=== PATIENT | male | born 1960 | race Hispanic/Latino ===

== ENCOUNTER 2017-07-17 19:30 | Inpatient (IN) | payer BC ==
[2017-07-17] MEDS ORDERED: ASPIRIN PO ONE (20:04)
[2017-07-17 20:24] LABS: Hemoglobin 6.5 gm/dl (11.8-15.2); Mean Corpuscular HGB Conc 34 % (32-34); Mean Corpuscular Hemoglobin 30 pg (28-32); Mean Corpuscular Volume 88 fl (84-94); Platelet Count 325 K/mm3 (140-440); Red Blood Count 2.21 M/mm3 (3.65-5.03); Red Cell Distribution Width 14.5 % (13.2-15.2)
[2017-07-17 20:30] LABS: BUN/Creatinine Ratio 24; Blood Urea Nitrogen 34 mg/dL (9-20); Calcium 8.2 mg/dL (8.4-10.2); Hemolysis Index 21
[2017-07-17 20:42] LABS: Hematocrit 19.4 % (35.5-45.6)
[2017-07-17] MEDS ORDERED: NACL 0.9% 500 ML 500 ML IV ONE (20:44)
[2017-07-17] MEDS ORDERED: PROTONIX 80 MG in NACL 0.9% 100 ML IV SCH (21:00)
--- NOTE | 2017-07-17 21:26 | Emergency Department Report ---
HPI - General Chief Complaint: Dizziness Time Seen by Provider: 07/17/17 20:42 - HPI HPI: 56-year-old male presents to ED with 1 week history of dizziness, shortness of breath, weakness, high blood pressure and black stool. Patient states symptoms got worse yesterday after drinking some coffee felt severe palpitation, went to the fire department and his blood pressure was found to be 200 over 100s. Patient states that he has been compliant with his blood pressure medicine he takes losartan 100 mg daily, hydrochlorothiazide 25 mg daily. He felt similar symptoms today as far as the palpitation did not get better at home, he also had elevated blood pressure so he presents to the ED for further evaluation. 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 ED Past Medical Hx - Past Medical History Hx Hypertension: Yes - Surgical History Past Surgical History?: No - Social History Smoking Status: Never Smoker Substance Use Type: None ED Review of Systems ROS: Stated complaint: DIZZINESS; ELEVATED BP Other details as noted in HPI Comment: All other systems reviewed and negative Gastrointestinal: nausea Neurological: weakness, other (dizziness) Physical Exam - Physical Exam Vital Signs: Vital Signs 07/17/17 07/17/17 19:45 21:18 Temperature 98 F 98.2 F Pulse Rate 98 H Respiratory 16 Rate Blood Pressure 125/57 O2 Sat by Pulse 98 Oximetry Physical Exam: - Physical Exam Physical Exam: - General Limitations: No Limitations General appearance: alert, in no apparent distress, mildly obese - Head Head exam: Present: atraumatic, normocephalic - Eye Eye exam: Present: normal appearance - ENT ENT exam: Present: mucous membranes moist - Neck Neck exam: Present: normal inspection - Respiratory Respiratory exam: Present: normal lung sounds bilaterally. Absent: respiratory distress - Cardiovascular Cardiovascular Exam: Present: normal rhythm, tachycardia. Absent: systolic murmur, diastolic murmur, rubs, gallop - GI/Abdominal GI/Abdominal exam: Present: soft, normal bowel sounds - Extremities Exam Extremities exam: Present: normal inspection - Back Exam Back exam: Present: normal inspection - Neurological Exam Neurological exam: Present: alert, oriented X3 - Psychiatric Psychiatric exam: normal affect and mood - Skin Skin exam: Present: warm, dry, intact, normal color. Absent: rash ED Course Vital Signs 07/17/17 07/17/17 19:45 21:18 Temperature 98 F 98.2 F Pulse Rate 98 H Respiratory 16 Rate Blood Pressure 125/57 O2 Sat by Pulse 98 Oximetry - Reevaluation(s) Reevaluation #1: 07/17/17 21:27 Patient advised about labs findings of severe anemia, he gives verbal consent for blood transfusion. Spoke with GI Dr. Lynn Donahue, he advised to keep patient nothing by mouth after midnight. ED Medical Decision Making - Lab Data Result diagrams: 07/17/17 20:08 07/17/17 20:08 Critical Care Time: Yes (30) Critical care time in (mins) excluding proc time.: 30 Critical care attestation.: If time is entered above; I have spent that time in minutes in the direct care of this critically ill patient, excluding procedure time. Critical Care Time: 2. RBCs ordered for severe anemia. ED Disposition Clinical Impression: UGI bleed Disposition: -09 OP ADMIT IP TO THIS HOSP Is pt being admited?: Yes Does the pt Need Aspirin: No Condition: Stable Referrals: ANNEMARIE SULLIVAN MD [Primary Care Provider] - 3-5 Days
[2017-07-17 22:08] LABS: Basophils % (Manual) 0 % (0.0-1.8); Total Cells Counted 100
[2017-07-17 22:16] LABS: Anisocytosis 1+; Platelet Estimate Consistent w Auto
[2017-07-17] MEDS ORDERED: SODIUM CHLORIDE FLUSH SYRINGE 10 ML IV PRN (23:05)
[2017-07-17] MEDS ORDERED: TYLENOL PO PRN (23:05)
[2017-07-17] MEDS ORDERED: ZOFRAN IV PRN (23:05)
[2017-07-17] MEDS ORDERED: NACL 0.45% 1000 ML 1,000 ML IV SCH (23:45)
[2017-07-18] MEDS ORDERED: NACL 0.45% 1000 ML 1,000 ML IV ONE (00:52)
--- NOTE | 2017-07-18 01:34 | History and Physical Report ---
History of Present Illness Date of examination: 07/17/17 Date of admission: 07/17/17 21:17 Chief complaint: Dizziness History of present illness: Patient is a 56 year old male who presented with 2 days history of dizziness. He has associated syncopal episodes, shortness of breath with mild exertion and passage of dark stool of 2 weeks' duration. No chest pain, palpitation, headaches, fever or chills Past History Past Medical History: hypertension, other (hiatal hernia per EGD done about 6 years ago) Past Surgical History: No surgical history Social history: other (denies tobacco, alcohol or illicit drug use) Family history: other (reviewed and noncontributory) Medications and Allergies Allergies Allergy/AdvReac Type Severity Reaction Status Date / Time No Known Allergies Allergy Verified 07/17/17 19:44 Active Meds: Active Medications Acetaminophen (Tylenol) 650 mg PO Q4H PRN PRN Reason: Pain MILD(1-3)/Fever >100.5/BOSE Docusate Sodium (Colace) 100 mg PO BID KALIA Pantoprazole Sodium 80 mg/ (Sodium Chloride) 100 mls @ 10 mls/hr IV DIRECT KALIA Sodium Chloride (Nacl 0.45% 1000 Ml) 1,000 mls @ 100 mls/hr IV DIRECT KALIA Ondansetron HCl (Zofran) 4 mg IV Q8H PRN PRN Reason: Nausea And Vomiting Sodium Chloride (Sodium Chloride Flush Syringe 10 Ml) 10 ml IV PRN PRN PRN Reason: LINE FLUSH Sodium Chloride (Sodium Chloride Flush Syringe 10 Ml) 10 ml IV BID KALIA Review of Systems All systems: negative (Except as documented in the HPI, all other systems were reviewed and negative) Exam - Constitutional Vitals: Temp Pulse Resp BP Pulse Ox 98.2 F 65 19 127/69 99 07/17/17 23:08 07/17/17 23:08 07/17/17 23:08 07/18/17 00:20 07/18/17 00:00 General appearance: Present: no acute distress, well-nourished - EENT Eyes: Present: PERRL, EOM intact ENT: hearing intact, clear oral mucosa - Neck Neck: Present: supple, normal ROM - Respiratory Respiratory effort: normal Respiratory: bilateral: CTA - Cardiovascular Heart Sounds: Present: S1 & S2. Absent: rub, click - Extremities Extremities: pulses symmetrical, No edema Peripheral Pulses: within normal limits - Abdominal General gastrointestinal: Present: soft, non-tender, non-distended, normal bowel sounds Male genitourinary: Present: normal - Integumentary Integumentary: Present: clear, warm, dry - Musculoskeletal Musculoskeletal: gait normal, strength equal bilaterally - Psychiatric Psychiatric: appropriate mood/affect, intact judgment & insight - Neurologic Neurologic: CNII-XII intact, moves all extremities Results - Labs CBC & Chem 7: 07/17/17 20:08 07/17/17 20:08 Labs: Laboratory Last Values WBC 9.2 K/mm3 (4.5-11.0) 07/17/17 20:08 RBC 2.21 M/mm3 (3.65-5.03) L 07/17/17 20:08 Hgb 6.5 gm/dl (11.8-15.2) L 07/17/17 20:08 Hct 19.4 % (35.5-45.6) L* 07/17/17 20:08 MCV 88 fl (84-94) 07/17/17 20:08 MCH 30 pg (28-32) 07/17/17 20:08 MCHC 34 % (32-34) 07/17/17 20:08 RDW 14.5 % (13.2-15.2) 07/17/17 20:08 Plt Count 325 K/mm3 (140-440) 07/17/17 20:08 Add Manual Diff Complete 07/17/17 20:08 Total Counted 100 07/17/17 20:08 Seg Neuts % (Manual) 54.0 % (40.0-70.0) 07/17/17 20:08 Band Neutrophils % 0 % 07/17/17 20:08 Lymphocytes % (Manual) 36.0 % (13.4-35.0) H 07/17/17 20:08 Reactive Lymphs % (Man) 0 % 07/17/17 20:08 Monocytes % (Manual) 8.0 % (0.0-7.3) H 07/17/17 20:08 Eosinophils % (Manual) 2.0 % (0.0-4.3) 07/17/17 20:08 Basophils % (Manual) 0 % (0.0-1.8) 07/17/17 20:08 Metamyelocytes % 0 % 07/17/17 20:08 Myelocytes % 0 % 07/17/17 20:08 Promyelocytes % 0 % 07/17/17 20:08 Blast Cells % 0 % 07/17/17 20:08 Nucleated RBC % Not Reportable 07/17/17 20:08 Seg Neutrophils # Man 5.0 K/mm3 (1.8-7.7) 07/17/17 20:08 Band Neutrophils # 0.0 K/mm3 07/17/17 20:08 Lymphocytes # (Manual) 3.3 K/mm3 (1.2-5.4) 07/17/17 20:08 Abs React Lymphs (Man) 0.0 K/mm3 07/17/17 20:08 Monocytes # (Manual) 0.7 K/mm3 (0.0-0.8) 07/17/17 20:08 Eosinophils # (Manual) 0.2 K/mm3 (0.0-0.4) 07/17/17 20:08 Basophils # (Manual) 0.0 K/mm3 (0.0-0.1) 07/17/17 20:08 Metamyelocytes # 0.0 K/mm3 07/17/17 20:08 Myelocytes # 0.0 K/mm3 07/17/17 20:08 Promyelocytes # 0.0 K/mm3 07/17/17 20:08 Blast Cells # 0.0 K/mm3 07/17/17 20:08 WBC Morphology Not Reportable 07/17/17 20:08 Hypersegmented Neuts Not Reportable 07/17/17 20:08 Hyposegmented Neuts Not Reportable 07/17/17 20:08 Hypogranular Neuts Not Reportable 07/17/17 20:08 Smudge Cells Not Reportable 07/17/17 20:08 Toxic Granulation Not Reportable 07/17/17 20:08 Toxic Vacuolation Not Reportable 07/17/17 20:08 Dohle Bodies Not Reportable 07/17/17 20:08 Pelger-Huet Anomaly Not Reportable 07/17/17 20:08 Leidy Rods Not Reportable 07/17/17 20:08 Platelet Estimate Consistent w auto 07/17/17 20:08 Clumped Platelets Not Reportable 07/17/17 20:08 Plt Clumps, EDTA Not Reportable 07/17/17 20:08 Large Platelets Not Reportable 07/17/17 20:08 Giant Platelets Not Reportable 07/17/17 20:08 Platelet Satelliting Not Reportable 07/17/17 20:08 Plt Morphology Comment Not Reportable 07/17/17 20:08 RBC Morphology Not Reportable 07/17/17 20:08 Dimorphic RBCs Not Reportable 07/17/17 20:08 Polychromasia Not Reportable 07/17/17 20:08 Hypochromasia Not Reportable 07/17/17 20:08 Poikilocytosis Not Reportable 07/17/17 20:08 Anisocytosis 1+ 07/17/17 20:08 Microcytosis Not Reportable 07/17/17 20:08 Macrocytosis Not Reportable 07/17/17 20:08 Spherocytes Not Reportable 07/17/17 20:08 Pappenheimer Bodies Not Reportable 07/17/17 20:08 Sickle Cells Not Reportable 07/17/17 20:08 Target Cells Not Reportable 07/17/17 20:08 Tear Drop Cells Not Reportable 07/17/17 20:08 Ovalocytes Not Reportable 07/17/17 20:08 Helmet Cells Not Reportable 07/17/17 20:08 Guy-[place] Bodies Not Reportable 07/17/17 20:08 [place] Rings Not Reportable 07/17/17 20:08 Della Cells Not Reportable 07/17/17 20:08 Bite Cells Not Reportable 07/17/17 20:08 Crenated Cell Not Reportable 07/17/17 20:08 Elliptocytes Not Reportable 07/17/17 20:08 Acanthocytes (Spur) Not Reportable 07/17/17 20:08 Rouleaux Not Reportable 07/17/17 20:08 Hemoglobin C Crystals Not Reportable 07/17/17 20:08 Schistocytes Not Reportable 07/17/17 20:08 Malaria parasites Not Reportable 07/17/17 20:08 Chris Bodies Not Reportable 07/17/17 20:08 Hem Pathologist Commnt No 07/17/17 20:08 Sodium 143 mmol/L (137-145) 07/17/17 20:08 Potassium 4.3 mmol/L (3.6-5.0) 07/17/17 20:08 Chloride 108.4 mmol/L (98-107) H 07/17/17 20:08 Carbon Dioxide 23 mmol/L (22-30) 07/17/17 20:08 Anion Gap 16 mmol/L 07/17/17 20:08 BUN 34 mg/dL (9-20) H 07/17/17 20:08 Creatinine 1.4 mg/dL (0.8-1.5) 07/17/17 20:08 Estimated GFR 53 ml/min 07/17/17 20:08 BUN/Creatinine Ratio 24 % 07/17/17 20:08 Glucose 114 mg/dL (75-100) H 07/17/17 20:08 Calcium 8.2 mg/dL (8.4-10.2) L 07/17/17 20:08 Troponin T < 0.010 ng/mL (0.00-0.029) 07/17/17 20:08 Blood Type B POSITIVE 07/17/17 20:51 Antibody Screen Negative 07/17/17 20:51 Crossmatch See Detail 07/17/17 20:51 Assessment and Plan Assessment and plan: GI bleed -Patient will be transfused with 2 units of packed red blood cell, Will monitor posttransfusion H&H -Will continue Protonix drip, started in the ED -He is scheduled for EGD in a.m. by the floor layer tile Hypertension, stable Prophylaxis -DVT prophylaxis with SCD and GI prophylaxis with Protonix 35 minutes spent in coordinating care
[2017-07-18 04:32] LABS: Hematocrit 21.8 % (35.5-45.6); Hemoglobin 7.3 gm/dl (11.8-15.2); Mean Corpuscular HGB Conc 34 % (32-34); Mean Corpuscular Hemoglobin 30 pg (28-32); Mean Corpuscular Volume 88 fl (84-94); Platelet Count 235 K/mm3 (140-440); Red Blood Count 2.47 M/mm3 (3.65-5.03); Red Cell Distribution Width 14.6 % (13.2-15.2)
[2017-07-18 04:42] LABS: INR 1.03 (0.87-1.13)
[2017-07-18 04:43] LABS: Partial Thromboplastin Time 28.9 Sec. (24.2-36.6)
[2017-07-18 04:48] LABS: Alanine Aminotransferase 16 units/L (7-56); Albumin 3.1 g/dL (3.9-5); BUN/Creatinine Ratio 25; Blood Urea Nitrogen 30 mg/dL (9-20); Calcium 7.9 mg/dL (8.4-10.2); Hemolysis Index 1
[2017-07-18 06:12] LABS: Total Cells Counted 100
[2017-07-18 06:13] LABS: Band Neutrophils # (Manual) 0.2 K/mm3; Basophils % (Manual) 0 % (0.0-1.8)
[2017-07-18 06:14] LABS: Anisocytosis 1+; Ovalocytes Rare; Platelet Estimate Appe
--- NOTE | 2017-07-18 09:50 | Gastroenterology Consultation ---
History of Present Illness - Reason for Consult Consult date: 07/18/17 UGIB Requesting physician: ECHO PATINO - History of Present Illness Patient is a 56 y/o male with PMH of HTN who presented to ED with c/o dizziness , SOB, weakness, and black stool x 1 week. He was found to be anemic on admission with HGB 6.5 and 2 units of PRBCs were transfused. This morning pt was resting in bed w/o acute distress and family at bedside. He states he is feeling better after receiving blood transfusions with SOB and dizziness now resolved. Last BM was yesterday with black stool. No active sign of bleeding this am. No hematemesis or hematochezia. Denies fever, wt loss, CP, abd pain, N/ V, dysphagia, odynophagia, diarrhea, or constipation. Takes daily ASA. No hx of liver disease or PUD. No previous EGD. States he had a scan done several years ago that revealed a hiatal hernia. No Fhx of GI cancers Past History Past Medical History: hypertension, other (hiatal hernia ) Past Surgical History: No surgical history Social history: other (denies tobacco, alcohol or illicit drug use) Family history: other (reviewed and noncontributory) Medications and Allergies Allergies Allergy/AdvReac Type Severity Reaction Status Date / Time No Known Allergies Allergy Verified 07/17/17 19:44 Home Medications Medication Instructions Recorded Confirmed Last Taken Type No Known Home Medications [No 07/18/17 07/18/17 Unknown History Reported Home Medications] Active Meds: Active Medications Acetaminophen (Tylenol) 650 mg PO Q4H PRN PRN Reason: Pain MILD(1-3)/Fever >100.5/BOSE Docusate Sodium (Colace) 100 mg PO BID KALIA Pantoprazole Sodium 80 mg/ (Sodium Chloride) 100 mls @ 10 mls/hr IV DIRECT KALIA Sodium Chloride (Nacl 0.45% 1000 Ml) 1,000 mls @ 100 mls/hr IV DIRECT KALIA Ondansetron HCl (Zofran) 4 mg IV Q8H PRN PRN Reason: Nausea And Vomiting Sodium Chloride (Sodium Chloride Flush Syringe 10 Ml) 10 ml IV PRN PRN PRN Reason: LINE FLUSH Sodium Chloride (Sodium Chloride Flush Syringe 10 Ml) 10 ml IV BID [facility] Review of Systems - Review of Systems All systems: negative Gastrointestinal: melena Exam - Constitutional Vital Signs: Temp Pulse Resp BP Pulse Ox 97.7 F 75 18 120/63 97 07/18/17 08:17 07/18/17 08:17 07/18/17 08:17 07/18/17 08:17 07/18/17 08:17 General appearance: no acute distress, obese - EENT Eyes: PERRL, EOM intact ENT: hearing intact - Respiratory Respiratory: bilateral: CTA - Cardiovascular Rhythm: regular Heart Sounds: Present: S1 & S2 - Gastrointestinal General gastrointestinal: Present: soft, non-tender, non-distended, normal bowel sounds - Integumentary Integumentary: Present: warm, dry - Neurologic Neurological: alert and oriented x3 - Labs CBC & Chem 7: 07/18/17 03:55 07/18/17 03:55 Lab Results: Laboratory Results - last 24 hr 07/17/17 07/17/17 07/17/17 20:08 20:08 20:51 WBC 9.2 RBC 2.21 L Hgb 6.5 L Hct 19.4 L* MCV 88 MCH 30 MCHC 34 RDW 14.5 Plt Count 325 Add Manual Diff Complete Total Counted 100 Seg Neuts % (Manual) 54.0 Band Neutrophils % 0 Lymphocytes % (Manual) 36.0 H Reactive Lymphs % (Man) 0 Monocytes % (Manual) 8.0 H Eosinophils % (Manual) 2.0 Basophils % (Manual) 0 Metamyelocytes % 0 Myelocytes % 0 Promyelocytes % 0 Blast Cells % 0 Nucleated RBC % Not Reportable Seg Neutrophils # Man 5.0 Band Neutrophils # 0.0 Lymphocytes # (Manual) 3.3 Abs React Lymphs (Man) 0.0 Monocytes # (Manual) 0.7 Eosinophils # (Manual) 0.2 Basophils # (Manual) 0.0 Metamyelocytes # 0.0 Myelocytes # 0.0 Promyelocytes # 0.0 Blast Cells # 0.0 WBC Morphology Not Reportable Hypersegmented Neuts Not Reportable Hyposegmented Neuts Not Reportable Hypogranular Neuts Not Reportable Smudge Cells Not Reportable Toxic Granulation Not Reportable Toxic Vacuolation Not Reportable Dohle Bodies Not Reportable Pelger-Huet Anomaly Not Reportable Leidy Rods Not Reportable Platelet Estimate Consistent w auto Clumped Platelets Not Reportable Plt Clumps, EDTA Not Reportable Large Platelets Not Reportable Giant Platelets Not Reportable Platelet Satelliting Not Reportable Plt Morphology Comment Not Reportable RBC Morphology Not Reportable Dimorphic RBCs Not Reportable Polychromasia Not Reportable Hypochromasia Not Reportable Poikilocytosis Not Reportable Anisocytosis 1+ Microcytosis Not Reportable Macrocytosis Not Reportable Spherocytes Not Reportable Pappenheimer Bodies Not Reportable Sickle Cells Not Reportable Target Cells Not Reportable Tear Drop Cells Not Reportable Ovalocytes Not Reportable Helmet Cells Not Reportable [place] Bodies Not Reportable [place] Rings Not Reportable [place] Cells Not Reportable Bite Cells Not Reportable Crenated Cell Not Reportable Elliptocytes Not Reportable Acanthocytes (Spur) Not Reportable Rouleaux Not Reportable Hemoglobin C Crystals Not Reportable Schistocytes Not Reportable Malaria parasites Not Reportable Chris Bodies Not Reportable Hem Pathologist Commnt No PT INR APTT Sodium 143 Potassium 4.3 Chloride 108.4 H Carbon Dioxide 23 Anion Gap 16 BUN 34 H Creatinine 1.4 Estimated GFR 53 BUN/Creatinine Ratio 24 Glucose 114 H Calcium 8.2 L Total Bilirubin AST ALT Alkaline Phosphatase Troponin T < 0.010 Total Protein Albumin Albumin/Globulin Ratio Blood Type B POSITIVE Antibody Screen Negative Crossmatch See Detail 07/18/17 07/18/17 07/18/17 03:55 03:55 03:55 WBC 8.3 RBC 2.47 L Hgb 7.3 L Hct 21.8 L MCV 88 MCH 30 MCHC 34 RDW 14.6 Plt Count 235 Add Manual Diff Complete Total Counted 100 Seg Neuts % (Manual) 60.0 Band Neutrophils % 2.0 Lymphocytes % (Manual) 29.0 Reactive Lymphs % (Man) 0 Monocytes % (Manual) 6.0 Eosinophils % (Manual) 3.0 Basophils % (Manual) 0 Metamyelocytes % 0 Myelocytes % 0 Promyelocytes % 0 Blast Cells % 0 Nucleated RBC % Not Reportable Seg Neutrophils # Man 5.0 Band Neutrophils # 0.2 Lymphocytes # (Manual) 2.4 Abs React Lymphs (Man) 0.0 Monocytes # (Manual) 0.5 Eosinophils # (Manual) 0.2 Basophils # (Manual) 0.0 Metamyelocytes # 0.0 Myelocytes # 0.0 Promyelocytes # 0.0 Blast Cells # 0.0 WBC Morphology Not Reportable Hypersegmented Neuts Not Reportable Hyposegmented Neuts Not Reportable Hypogranular Neuts Not Reportable Smudge Cells Not Reportable Toxic Granulation Not Reportable Toxic Vacuolation Not Reportable Dohle Bodies Not Reportable Pelger-Huet Anomaly Not Reportable Leidy Rods Not Reportable Platelet Estimate Appe Clumped Platelets Not Reportable Plt Clumps, EDTA Not Reportable Large Platelets Not Reportable Giant Platelets Not Reportable Platelet Satelliting Not Reportable Plt Morphology Comment Not Reportable RBC Morphology Not Reportable Dimorphic RBCs Not Reportable Polychromasia Not Reportable Hypochromasia Not Reportable Poikilocytosis Not Reportable Anisocytosis 1+ Microcytosis Not Reportable Macrocytosis Not Reportable Spherocytes Not Reportable Pappenheimer Bodies Not Reportable Sickle Cells Not Reportable Target Cells Not Reportable Tear Drop Cells Not Reportable Ovalocytes Rare Helmet Cells Not Reportable [place] Bodies Not Reportable [place] Rings Not Reportable Della Cells Not Reportable Bite Cells Not Reportable Crenated Cell Not Reportable Elliptocytes Not Reportable Acanthocytes (Spur) Not Reportable Rouleaux Not Reportable Hemoglobin C Crystals Not Reportable Schistocytes Not Reportable Malaria parasites Not Reportable Chris Bodies Not Reportable Hem Pathologist Commnt No PT INR APTT Sodium 142 Potassium 3.8 Chloride 107.4 H Carbon Dioxide 26 Anion Gap 12 BUN 30 H Creatinine 1.2 Estimated GFR > 60 BUN/Creatinine Ratio 25 Glucose 155 H Calcium 7.9 L Total Bilirubin < 0.20 AST 15 ALT 16 Alkaline Phosphatase 59 Troponin T < 0.010 Total Protein 5.3 L Albumin 3.1 L Albumin/Globulin Ratio 1.4 Blood Type Antibody Screen Crossmatch 07/18/17 03:55 WBC RBC Hgb Hct MCV MCH MCHC RDW Plt Count Add Manual Diff Total Counted Seg Neuts % (Manual) Band Neutrophils % Lymphocytes % (Manual) Reactive Lymphs % (Man) Monocytes % (Manual) Eosinophils % (Manual) Basophils % (Manual) Metamyelocytes % Myelocytes % Promyelocytes % Blast Cells % Nucleated RBC % Seg Neutrophils # Man Band Neutrophils # Lymphocytes # (Manual) Abs React Lymphs (Man) Monocytes # (Manual) Eosinophils # (Manual) Basophils # (Manual) Metamyelocytes # Myelocytes # Promyelocytes # Blast Cells # WBC Morphology Hypersegmented Neuts Hyposegmented Neuts Hypogranular Neuts Smudge Cells Toxic Granulation Toxic Vacuolation Dohle Bodies Pelger-Huet Anomaly Leidy Rods Platelet Estimate Clumped Platelets Plt Clumps, EDTA Large Platelets Giant Platelets Platelet Satelliting Plt Morphology Comment RBC Morphology Dimorphic RBCs Polychromasia Hypochromasia Poikilocytosis Anisocytosis Microcytosis Macrocytosis Spherocytes Pappenheimer Bodies Sickle Cells Target Cells Tear Drop Cells Ovalocytes Helmet Cells Guy-[place] Bodies [place] Rings Della Cells Bite Cells Crenated Cell Elliptocytes Acanthocytes (Spur) Rouleaux Hemoglobin C Crystals Schistocytes Malaria parasites Chris Bodies Hem Pathologist Commnt PT 14.0 INR 1.03 APTT 28.9 Sodium Potassium Chloride Carbon Dioxide Anion Gap BUN Creatinine Estimated GFR BUN/Creatinine Ratio Glucose Calcium Total Bilirubin AST ALT Alkaline Phosphatase Troponin T Total Protein Albumin Albumin/Globulin Ratio Blood Type Antibody Screen Crossmatch Assessment and Plan 1.GI bleed 2.melena -HGB 7.3-s/p transfusion of 2 units PRBCs -continue to monitor H/H and transfuse as needed -BM with black stool yesterday but no active signs of bleeding this am -currently HD stable -hold blood thinning medications -etiology- possible ulcer vs other GI pathology -will schedule for an EGD today -Neep NPO -continue PPI and supportive care -will follow
--- NOTE | 2017-07-18 10:17 | Progress Note ---
Assessment and Plan Assessment and plan: 56-year-old man who presented with melena 2 weeks and dizziness Acute blood loss anemia Has been transfused seems of packed red blood cells with appropriate rise in hemoglobin, physes keep the hemoglobin above 7 GI bleed GI input appreciated for EGD today Hypertension, stable Prophylaxis -DVT prophylaxis with SCD and GI prophylaxis with Protonix History Interval history: Review of systems Constitutional: No fevers, no malaise, no joint pains CVS: No chest pain, no orthopnea, no dyspnea on exertion, no pedal edema GI: No abdominal pain, no diarrhea, no vomiting, no constipation Respiratory: No shortness of breath, no wheezing, no coughing Hospitalist Physical - Physical exam Narrative exam: General.: Appears well, no distress, nontoxic HEENT: Moist mucous membranes, extraocular muscles intact, no lymphadenopathy Neck: supple Cardiac: S1-S2 heard Lungs: clear to auscultation bilaterally Abdomen: soft , nontender, nondistended, bowel sounds positive Extremities: no edema clubbing or cyanosis Skin: no rash or lesions Neurologic: no gross focal deficits Psych: appropriate behavior, appropriate mood, corporative, judgment intact - Constitutional Vitals: Temp Pulse Resp BP Pulse Ox 97.7 F 75 18 120/63 97 07/18/17 08:17 07/18/17 08:17 07/18/17 08:17 07/18/17 08:17 07/18/17 08:17 General appearance: Present: no acute distress, well-nourished Results - Labs CBC & Chem 7: 07/18/17 03:55 07/18/17 03:55 Labs: Laboratory Last Values WBC 8.3 K/mm3 (4.5-11.0) 07/18/17 03:55 RBC 2.47 M/mm3 (3.65-5.03) L 07/18/17 03:55 Hgb 7.3 gm/dl (11.8-15.2) L 07/18/17 03:55 Hct 21.8 % (35.5-45.6) L 07/18/17 03:55 MCV 88 fl (84-94) 07/18/17 03:55 MCH 30 pg (28-32) 07/18/17 03:55 MCHC 34 % (32-34) 07/18/17 03:55 RDW 14.6 % (13.2-15.2) 07/18/17 03:55 Plt Count 235 K/mm3 (140-440) 07/18/17 03:55 Add Manual Diff Complete 07/18/17 03:55 Total Counted 100 07/18/17 03:55 Seg Neuts % (Manual) 60.0 % (40.0-70.0) 07/18/17 03:55 Band Neutrophils % 2.0 % 07/18/17 03:55 Lymphocytes % (Manual) 29.0 % (13.4-35.0) 07/18/17 03:55 Reactive Lymphs % (Man) 0 % 07/18/17 03:55 Monocytes % (Manual) 6.0 % (0.0-7.3) 07/18/17 03:55 Eosinophils % (Manual) 3.0 % (0.0-4.3) 07/18/17 03:55 Basophils % (Manual) 0 % (0.0-1.8) 07/18/17 03:55 Metamyelocytes % 0 % 07/18/17 03:55 Myelocytes % 0 % 07/18/17 03:55 Promyelocytes % 0 % 07/18/17 03:55 Blast Cells % 0 % 07/18/17 03:55 Nucleated RBC % Not Reportable 07/18/17 03:55 Seg Neutrophils # Man 5.0 K/mm3 (1.8-7.7) 07/18/17 03:55 Band Neutrophils # 0.2 K/mm3 07/18/17 03:55 Lymphocytes # (Manual) 2.4 K/mm3 (1.2-5.4) 07/18/17 03:55 Abs React Lymphs (Man) 0.0 K/mm3 07/18/17 03:55 Monocytes # (Manual) 0.5 K/mm3 (0.0-0.8) 07/18/17 03:55 Eosinophils # (Manual) 0.2 K/mm3 (0.0-0.4) 07/18/17 03:55 Basophils # (Manual) 0.0 K/mm3 (0.0-0.1) 07/18/17 03:55 Metamyelocytes # 0.0 K/mm3 07/18/17 03:55 Myelocytes # 0.0 K/mm3 07/18/17 03:55 Promyelocytes # 0.0 K/mm3 07/18/17 03:55 Blast Cells # 0.0 K/mm3 07/18/17 03:55 WBC Morphology Not Reportable 07/18/17 03:55 Hypersegmented Neuts Not Reportable 07/18/17 03:55 Hyposegmented Neuts Not Reportable 07/18/17 03:55 Hypogranular Neuts Not Reportable 07/18/17 03:55 Smudge Cells Not Reportable 07/18/17 03:55 Toxic Granulation Not Reportable 07/18/17 03:55 Toxic Vacuolation Not Reportable 07/18/17 03:55 Dohle Bodies Not Reportable 07/18/17 03:55 Pelger-Huet Anomaly Not Reportable 07/18/17 03:55 Leidy Rods Not Reportable 07/18/17 03:55 Platelet Estimate Appe 07/18/17 03:55 Clumped Platelets Not Reportable 07/18/17 03:55 Plt Clumps, EDTA Not Reportable 07/18/17 03:55 Large Platelets Not Reportable 07/18/17 03:55 Giant Platelets Not Reportable 07/18/17 03:55 Platelet Satelliting Not Reportable 07/18/17 03:55 Plt Morphology Comment Not Reportable 07/18/17 03:55 RBC Morphology Not Reportable 07/18/17 03:55 Dimorphic RBCs Not Reportable 07/18/17 03:55 Polychromasia Not Reportable 07/18/17 03:55 Hypochromasia Not Reportable 07/18/17 03:55 Poikilocytosis Not Reportable 07/18/17 03:55 Anisocytosis 1+ 07/18/17 03:55 Microcytosis Not Reportable 07/18/17 03:55 Macrocytosis Not Reportable 07/18/17 03:55 Spherocytes Not Reportable 07/18/17 03:55 Pappenheimer Bodies Not Reportable 07/18/17 03:55 Sickle Cells Not Reportable 07/18/17 03:55 Target Cells Not Reportable 07/18/17 03:55 Tear Drop Cells Not Reportable 07/18/17 03:55 Ovalocytes Rare 07/18/17 03:55 Helmet Cells Not Reportable 07/18/17 03:55 [place] Bodies Not Reportable 07/18/17 03:55 [place] Rings Not Reportable 07/18/17 03:55 [place] Cells Not Reportable 07/18/17 03:55 Bite Cells Not Reportable 07/18/17 03:55 Crenated Cell Not Reportable 07/18/17 03:55 Elliptocytes Not Reportable 07/18/17 03:55 Acanthocytes (Spur) Not Reportable 07/18/17 03:55 Rouleaux Not Reportable 07/18/17 03:55 Hemoglobin C Crystals Not Reportable 07/18/17 03:55 Schistocytes Not Reportable 07/18/17 03:55 Malaria parasites Not Reportable 07/18/17 03:55 Chris Bodies Not Reportable 07/18/17 03:55 Hem Pathologist Commnt No 07/18/17 03:55 PT 14.0 Sec. (12.2-14.9) 07/18/17 03:55 INR 1.03 (0.87-1.13) 07/18/17 03:55 APTT 28.9 Sec. (24.2-36.6) 07/18/17 03:55 Sodium 142 mmol/L (137-145) 07/18/17 03:55 Potassium 3.8 mmol/L (3.6-5.0) 07/18/17 03:55 Chloride 107.4 mmol/L (98-107) H 07/18/17 03:55 Carbon Dioxide 26 mmol/L (22-30) 07/18/17 03:55 Anion Gap 12 mmol/L 07/18/17 03:55 BUN 30 mg/dL (9-20) H 07/18/17 03:55 Creatinine 1.2 mg/dL (0.8-1.5) 07/18/17 03:55 Estimated GFR > 60 ml/min 07/18/17 03:55 BUN/Creatinine Ratio 25 % 07/18/17 03:55 Glucose 155 mg/dL (75-100) H 07/18/17 03:55 Calcium 7.9 mg/dL (8.4-10.2) L 07/18/17 03:55 Total Bilirubin < 0.20 mg/dL (0.1-1.2) 07/18/17 03:55 AST 15 units/L (5-40) 07/18/17 03:55 ALT 16 units/L (7-56) 07/18/17 03:55 Alkaline Phosphatase 59 units/L (35-129) 07/18/17 03:55 Troponin T < 0.010 ng/mL (0.00-0.029) 07/18/17 03:55 Total Protein 5.3 g/dL (6.3-8.2) L 07/18/17 03:55 Albumin 3.1 g/dL (3.9-5) L 07/18/17 03:55 Albumin/Globulin Ratio 1.4 % 07/18/17 03:55 Blood Type B POSITIVE 07/17/17 20:51 Antibody Screen Negative 07/17/17 20:51 Crossmatch See Detail 07/17/17 20:51
[2017-07-18] MEDS ORDERED: WATER FOR IRRIG STERILE IR ONE (11:36)
[2017-07-18] MEDS ORDERED: NACL 0.9% 1000 ML 1,000 ML IV SCH (13:00)
[2017-07-18] MEDS ORDERED: DIPRIVAN 10 MG/ML IV ONE (14:32)
--- NOTE | 2017-07-18 14:45 | Anesthesia Consultation ---
Anesthesia Consult and Med Hx Date of service: 07/18/17 - Airway Anesthetic Teeth Evaluation: Good ROM Head & Neck: Adequate Mental/Hyoid Distance: Adequate Mallampati Class: Class III Intubation Access Assessment: Probably Good - Pulmonary Exam CTA: Yes - Pre-Operative Health Status ASA Pre-Surgery Classification: ASA1, ASA3 Proposed Anesthetic Plan: TIVA - Pulmonary Hx Smoking: No Hx Asthma: No Hx Respiratory Symptoms: No COPD: No Home Oxygen Therapy: No Hx Pneumonia: No Hx Sleep Apnea: No - Cardiovascular System Hx Hypertension: Yes Hx Heart Attack/AMI: No Hx Angina: No Hx Percutaneous Transluminal Coronary Angioplasty (PTCA): No Hx Cardia Arrhythmia: No Hx Pacemaker: No Hx Internal Defibrillator: No Hx Valvular Heart Disease: No Hx Heart Murmur: No Hx Peripheral Vascular Disease: No - Central Nervous System Hx Seizures: No CVA: No Hx Back Pain: No Hx Psychiatric Problems: No - Gastrointestinal Hx Ulcer: No Hx Gastroesophageal Reflux Disease: No - Endocrine Hx Renal Disease: No Hx End Stage Renal Disease: No Hx Cirrhosis: No Hx Liver Disease: No Hx Insulin Dependent Diabetes: No Hx Non-Insulin Dependent Diabetes: No Hx Thyroid Disease: No Hx Hypothyroidism: No Hx Hyperthyroidism: No - Hematic Hx Anemia: No Hx Sickle Cell Disease: No - Other Systems Hx Alcohol Use: No Hx Substance Use: No Hx Cancer: No Hx Obesity: No
--- NOTE | 2017-07-18 14:59 | Operative Report ---
Operative Report Operative Report: Esophagogastroduodenoscopy Procedure Note with Biopsies Date of procedure: 07/18/2017 Endoscopist: Aashish Donahue Pre-op diagnosis: UGI bleed, anemia Post-op diagnosis: Erosive esophagitis, salmon colored mucosa in lower third of esophagus, hiatal hernia, erosive gastritis, duodenitis Anesthesia: MAC Complications: No immediate complications Estimated blood loss: minimal Procedure: After consent was obtained, the patient was placed in the left lateral decubitus position. The fujinon endoscope was inserted into the patient 's mouth under direct vision, and advanced to the 2nd portion of duodenum without difficulty. The patient tolerated the procedure well. The views of the mucosa were good. Patient's vital signs were monitored continuously throughout the procedure. Findings: There were two clean based ulcerations in the lower third of the esophagus. [place] colored mucosa in the mid-lower third of the esophagus, suspicious for lopez's esophagus. Biopsies were obtained. There was a moderate-sized hiatal hernia. Small clean based erosions in the antrum of the stomach with erythematous mucosa. Otherwise the stomach appeared normal. Biopsies were obtained to evaluate for H pylori. Erythematous mucosa in the duodenal bulb. There was nodular appearing mucosa in the proximal portion of duodenal bulb (gastric heterotopia appearance). Biopsies were obtained. Bile seen in the 2nd portion of the duodenum. Biopsies were obtained to rule out celiac disease. Impression: 1. Erosive esophagitis 2. [place] colored mucosa in lower esophagus. Biopsied. 3. Erosive gastritis. Biopsied 4. Duodenitis/nodular duodenal bulb mucosa. Biopsied. Multiple potential source for patient's dark stools, however no high risk bleeding lesions seen. Recommendations: -follow-up pathology -PPI BID dosing -check iron studies, start replacement therapy as needed -will need colonoscopy which can be done as outpatient if no further bleeding signs and H/H is stable -repeat endoscopy in 2-3 months after PPI therapy to re-assess esophagitis/ abnormal mucosal changes above -okay to start clears and advance as tolerated
[2017-07-18] MEDS: COLACE PO SCH ×2 (17:23→21:37)
[2017-07-18] MEDS: SODIUM CHLORIDE FLUSH SYRINGE 10 ML IV SCH ×2 (17:23→21:41)
[2017-07-19 07:07] LABS: Hematocrit 22.2 % (35.5-45.6); Hemoglobin 7.7 gm/dl (11.8-15.2); Mean Corpuscular HGB Conc 35 % (32-34); Mean Corpuscular Hemoglobin 30 pg (28-32); Mean Corpuscular Volume 87 fl (84-94); Platelet Count 222 K/mm3 (140-440); Red Blood Count 2.56 M/mm3 (3.65-5.03); Red Cell Distribution Width 14.6 % (13.2-15.2)
[2017-07-19 07:18] LABS: Calcium 7.9 mg/dL (8.4-10.2)
[2017-07-19 09:31] LABS: Anisocytosis 1+; Basophils % (Manual) 0 % (0.0-1.8); Platelet Estimate Consistent w Auto; Total Cells Counted 100
[2017-07-19] MEDS ORDERED: PROTONIX IV SCH (11:00)
[2017-07-19] MEDS: COLACE PO SCH (13:11)
--- NOTE | 2017-07-19 15:01 | Gastroenterology Progress Note ---
Assessment and Plan - Patient Problems (1) Acute blood loss anemia Current Visit: Yes Status: Acute Plan to address problem: - EGD 07/18 with HH/gastritis/esophagitis and likely Barretts. - Dark stools have resolved and patient asymptomatic. - Is due for a colonoscopy, and we will arrange this as an outpatient within the next 2 weeks in the clinic. - OK to d/c home on PO protonix, MVI daily, and ASA 81 mg (instructed patient and to hold this until Fri07/23/2017). - We will have the patient f/u in our clinic for labs next week. - Instructed them to avoid all NSAIDs other than his cardiac aspirin. Subjective Date of service: 07/19/17 Principal diagnosis: Anemia Interval history: The patient feels well with no N/V/abdominal pain. He had a BM this morning, and it has gone back to brown. He is tolerating a regular diet. Objective - Constitutional Vitals: Temp Pulse Resp BP Pulse Ox 97.7 F 81 20 127/56 97 07/19/17 11:50 07/19/17 11:50 07/19/17 11:50 07/19/17 11:50 07/19/17 11:50 General appearance: no acute distress - Respiratory Respiratory effort: normal Respiratory: bilateral: CTA - Cardiovascular Rhythm: regular Heart Sounds: Present: S1 & S2 - Gastrointestinal General gastrointestinal: Present: soft, non-tender, non-distended - Labs CBC & Chem 7: 07/19/17 05:16 07/19/17 05:16 Labs: Laboratory Results - last 24 hr 07/19/17 07/19/17 05:16 05:16 WBC 6.1 RBC 2.56 L Hgb 7.7 L Hct 22.2 L MCV 87 MCH 30 MCHC 35 H RDW 14.6 Plt Count 222 Add Manual Diff Complete Total Counted 100 Seg Neuts % (Manual) 59.0 Band Neutrophils % 0 Lymphocytes % (Manual) 33.0 Reactive Lymphs % (Man) 3.0 Monocytes % (Manual) 3.0 Eosinophils % (Manual) 2.0 Basophils % (Manual) 0 Metamyelocytes % 0 Myelocytes % 0 Promyelocytes % 0 Blast Cells % 0 Nucleated RBC % Not Reportable Seg Neutrophils # Man 3.6 Band Neutrophils # 0.0 Lymphocytes # (Manual) 2.0 Abs React Lymphs (Man) 0.2 Monocytes # (Manual) 0.2 Eosinophils # (Manual) 0.1 Basophils # (Manual) 0.0 Metamyelocytes # 0.0 Myelocytes # 0.0 Promyelocytes # 0.0 Blast Cells # 0.0 WBC Morphology Not Reportable Hypersegmented Neuts Not Reportable Hyposegmented Neuts Not Reportable Hypogranular Neuts Not Reportable Smudge Cells Not Reportable Toxic Granulation Not Reportable Toxic Vacuolation Not Reportable Dohle Bodies Not Reportable Pelger-Huet Anomaly Not Reportable Leidy Rods Not Reportable Platelet Estimate Consistent w auto Clumped Platelets Not Reportable Plt Clumps, EDTA Not Reportable Large Platelets Not Reportable Giant Platelets Not Reportable Platelet Satelliting Not Reportable Plt Morphology Comment Not Reportable RBC Morphology Not Reportable Dimorphic RBCs Not Reportable Polychromasia Not Reportable Hypochromasia Not Reportable Poikilocytosis Not Reportable Anisocytosis 1+ Microcytosis Not Reportable Macrocytosis Not Reportable Spherocytes Not Reportable Pappenheimer Bodies Not Reportable Sickle Cells Not Reportable Target Cells Not Reportable Tear Drop Cells Not Reportable Ovalocytes Not Reportable Helmet Cells Not Reportable [place] Bodies Not Reportable [place] Rings Not Reportable Della Cells Not Reportable Bite Cells Not Reportable Crenated Cell Not Reportable Elliptocytes Not Reportable Acanthocytes (Spur) Not Reportable Rouleaux Not Reportable Hemoglobin C Crystals Not Reportable Schistocytes Not Reportable Malaria parasites Not Reportable Chris Bodies Not Reportable Hem Pathologist Commnt No Sodium 142 Potassium 4.3 Chloride 105.7 Carbon Dioxide 25 Anion Gap 16 BUN 20 Creatinine 1.3 Estimated GFR 57 BUN/Creatinine Ratio 15 Glucose 131 H Calcium 7.9 L
[2017-07-19] MEDS: SODIUM CHLORIDE FLUSH SYRINGE 10 ML IV SCH (15:05)
--- NOTE | 2017-07-19 15:48 | Discharge Summary ---
Providers - Providers Date of Admission: 07/17/17 21:17 Attending physician: SAJAN CAIN MD 07/17/17 20:56 Consult to Physician [CONS] Stat Comment: Dr. Alva (er dr) spoke with Dr. Lu Donahue Consulting Provider: BETO DONAHUE Physician Instructions: UGIB Reason For Exam: ugib Primary care physician: ANNEMARIE SULLIVAN Hospitalization Condition: Stable Hospital course: 56-year-old man who presented with melena 2 weeks and dizziness. The patient received blood transfusion. 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 The patient's is planned for outpatient colonoscopy with GI. He is being discharged with iron supplements and Protonix. The patient has been instructed to hold his aspirin until 07/23/2017 Diagnoses Acute blood loss anemia GI bleed from gastritis and esophagitis Hypertension Disposition: TO HOME OR SELFCARE Time spent for discharge: 33 minutes Core Measure Documentation - Palliative Care Palliative Care/ Comfort Measures: Not Applicable - Core Measures Any of the following diagnoses?: none Exam - Constitutional Vitals: Temp Pulse Resp BP Pulse Ox 97.7 F 81 20 127/56 97 07/19/17 11:50 07/19/17 11:50 07/19/17 11:50 07/19/17 11:50 07/19/17 11:50 General appearance: Present: no acute distress, well-nourished - EENT Eyes: Present: PERRL ENT: hearing intact, clear oral mucosa - Neck Neck: Present: supple, normal ROM - Respiratory Respiratory effort: normal Respiratory: bilateral: CTA - Cardiovascular Heart Sounds: Present: S1 & S2. Absent: rub, click - Extremities Extremities: pulses symmetrical, No edema Peripheral Pulses: within normal limits - Abdominal General gastrointestinal: Present: soft, non-tender, non-distended, normal bowel sounds Male genitourinary: Present: normal - Integumentary Integumentary: Present: clear, warm, dry - Musculoskeletal Musculoskeletal: gait normal, strength equal bilaterally - Psychiatric Psychiatric: appropriate mood/affect, intact judgment & insight - Neurologic Neurologic: CNII-XII intact, moves all extremities Plan Additional Instructions: Do not take aspirin until 07/23/2017 Follow up with: ANNEMARIE SULLIVAN MD [Primary Care Provider] - 3-5 Days Prescriptions: Pantoprazole [Protonix TAB] 40 mg PO BID #60 tablet
[2017-07-19 17:07] VITALS: BP 137/68
[2017-07-20] MEDS ORDERED: PROTONIX PO SCH (10:00)
== END 2017-07-19 17:25 | disposition home or self-care (01) | DRG 381 ==
LOC: ED 19:30 → 4A 21:17
PROVIDERS: ADMIT Internal Medicine; ATTEND Internal Medicine
PROC: 30233N1 Transfusion of Nonautologous Red Blood Cells into Peripheral Vein, Percutaneous Approach (ICD-10-PCS; principal; 2017-07-17)
PROC: 0DB98ZX Excision of Duodenum, Via Natural or Artificial Opening Endoscopic, Diagnostic (ICD-10-PCS; 2017-07-18)
PROC: 0DB68ZX Excision of Stomach, Via Natural or Artificial Opening Endoscopic, Diagnostic (ICD-10-PCS; 2017-07-18)
PROC: 0DB38ZX Excision of Lower Esophagus, Via Natural or Artificial Opening Endoscopic, Diagnostic (ICD-10-PCS; 2017-07-18)
DX: K22.11 Ulcer of esophagus with bleeding (principal); D62 Acute posthemorrhagic anemia; K29.81 Duodenitis with bleeding; K92.1 Melena; I10 Essential (primary) hypertension; K44.9 Diaphragmatic hernia without obstruction or gangrene; Z79.899 Other long term (current) drug therapy; Z79.82 Long term (current) use of aspirin
CPT/HCPCS: 36415; 80048; 80053; 84484; 85007; 85025; 85610; 85730; 86850; 86900; 86901; 86920; 88305; 88342; 93005; 93010; 99291; C9113; J2704; J7030; J7040; P9016